=== PATIENT | female | born 2000 | race Caucasian/White ===

== ENCOUNTER → 2023-11-11 09:42 | Outpatient (REF) | payer OTHER, SELFPAY ==
[2023-11-11 10:28] LABS: % Basophils 0.5 % (0-2); % Eosinophils 1.7 % (0-6); % Immature Granulocytes 0.1 % (0-0.5); % Lymphocytes 27.2 % (20.5-51.1); % Monocytes 7.9 % (1.7-9.3); % Neutrophils 62.6 % (42.2-75.2); Absolute Eosinophils 0.1 10^3/uL (0-0.7); Absolute Monocytes 0.6 10^3/uL (0.1-0.6); Absolute Neutrophils 4.7 10^3/uL (1.4-6.5); Hematocrit 41.5 % (37.0-47.0); Hemoglobin 14.6 g/dL (12.0-16.0); Mean Corp Hgb Conc. 35.2 g/dL (33.0-37.0); Mean Corpuscular Hgb 31.3 pg (27.0-31.0); Mean Corpuscular Volume 89.1 fL (81.0-99.0); Mean Platelet Volume 10.8 fL (7.4-10.4); Nucleated Red Blood Cells % 0 %; Platelet Count 296 10^3/uL (130-400); Red Blood Cell Count 4.66 10^6/uL (4.20-5.40); White Blood Cell Count 7.5 10^3/uL (4.8-10.8)
[2023-11-11 11:05] LABS: ALT (SGPT) 14 U/L (0-35); AST (SGOT) 22 U/L (14-36); Albumin 4.1 g/dl (3.5-5.0); Alkaline Phosphatase 85 U/L (38-126); Blood Urea Nitrogen 9 mg/dl (7-17); Calcium 9.4 mg/dl (8.4-10.2); Carbon Dioxide 22 mmol/L (22-30); Chloride 105 mmol/L (98-107); Glucose 85 mg/dl (70-99); HDL Cholesterol 54 mg/dl; Iron 131 ug/dl (37-170); LDL Cholesterol, Calculated 80 mg/dl; Potassium 4.4 mmol/L (3.5-5.1); Sodium 135 mmol/L (135-145); Total Bilirubin 0.5 mg/dl (0.2-1.3); Total Cholesterol 165 mg/dl (50-199); Total Protein 6.9 g/dl (6.3-8.2); Triglyceride 156 mg/dl (10-149); Very Low Density Lipoprotein 31 mg/dl (0-30); eGFR > 60.00
[2023-11-11 11:19] LABS: Free T4 0.98 ng/dl (0.78-2.19); Percent Saturation 38 % (20-50); Total Iron Binding Capacity 338 ug/dl (265-497)
[2023-11-11 11:21] LABS: Prolactin < 1.4 ng/ml (3.0-18.6)
[2023-11-11 11:33] LABS: TSH 1.17 uIU/ml (0.47-4.68)
[2023-11-11 11:37] LABS: Ferritin 49.5 ng/ml (6.24-137)
== END ==
LOC: REG 09:42
PROVIDERS: ATTENDING PHYSICIAN Internal Medicine Endocrinology, Diabetes & Metabolism; FAMILY PHYSICIAN Family Medicine
DX: Z00.00 Encounter for general adult medical examination without abnormal findings (principal); Z13.0 Encounter for screening for diseases of the blood and blood-forming organs and certain disorders involving the immune mechanism; L65.9 Nonscarring hair loss, unspecified; Z13.1 Encounter for screening for diabetes mellitus; E78.5 Hyperlipidemia, unspecified; Z13.29 Encounter for screening for other suspected endocrine disorder; E22.1 Hyperprolactinemia; N91.4 Secondary oligomenorrhea
CPT/HCPCS: 36415; 80053; 80061; 82728; 83540; 83550; 84146; 84439; 84443; 85025

== ENCOUNTER → 2024-03-06 08:17 | Outpatient (REF) | payer OTHER, SELFPAY ==
[2024-03-06 09:28] LABS: % Basophils 0.8 % (0-2); % Immature Granulocytes 0.3 % (0-0.5); % Neutrophils 61.9 % (42.2-75.2); Absolute Basophils 0.1 10^3/uL (0-0.2); Absolute Eosinophils 0.2 10^3/uL (0-0.7); Absolute Lymphocytes 2.1 10^3/uL (1.2-3.4); Absolute Monocytes 0.6 10^3/uL (0.1-0.6); Absolute Neutrophils 4.7 10^3/uL (1.4-6.5); Mean Corp Hgb Conc. 34.1 g/dL (33.0-37.0); Mean Corpuscular Hgb 30.3 pg (27.0-31.0); Mean Corpuscular Volume 88.7 fL (81.0-99.0); Mean Platelet Volume 11.4 fL (7.4-10.4); Nucleated Red Blood Cells % 0 %; Platelet Count 310 10^3/uL (130-400); Red Blood Cell Count 4.62 10^6/uL (4.20-5.40); Red Cell Dist. Width 11.9 % (11.5-14.5); White Blood Cell Count 7.6 10^3/uL (4.8-10.8)
[2024-03-06 09:51] LABS: Iron 84 ug/dl (37-170)
[2024-03-06 10:01] LABS: Percent Saturation 23 % (20-50); Total Iron Binding Capacity 354 ug/dl (265-497)
[2024-03-06 10:23] LABS: Ferritin 50.7 ng/ml (6.24-137)
== END ==
LOC: REG 08:17
PROVIDERS: ATTENDING PHYSICIAN Family Medicine
DX: L65.9 Nonscarring hair loss, unspecified (principal)
CPT/HCPCS: 36415; 82728; 83540; 83550; 85025

== ENCOUNTER 2024-05-25 14:51 | Outpatient (RCR) | payer OTHER, SELFPAY | END 2024-05-25 23:59 | disposition home or self-care (01) | LOC: RPT 14:51 | PROVIDERS: ATTENDING PHYSICIAN Family Medicine | DX: M62.838 Other muscle spasm (principal); Z73.6 Limitation of activities due to disability | CPT/HCPCS: 97010; 97110; 97112; 97140; 97161 ==

== ENCOUNTER → 2024-11-11 09:14 | Outpatient (REF) | payer OTHER, SELFPAY ==
[2024-11-11 10:17] LABS: % Basophils 0.6 % (0-2); % Eosinophils 1.1 % (0-6); % Immature Granulocytes 0.3 % (0-0.5); % Lymphocytes 22.4 % (20.5-51.1); % Monocytes 8.8 % (1.7-9.3); % Neutrophils 66.8 % (42.2-75.2); Absolute Basophils 0.1 10^3/uL (0-0.2); Absolute Eosinophils 0.1 10^3/uL (0-0.7); Absolute Lymphocytes 2.1 10^3/uL (1.2-3.4); Absolute Monocytes 0.8 10^3/uL (0.1-0.6); Absolute Neutrophils 6.3 10^3/uL (1.4-6.5); Hematocrit 41.5 % (37.0-47.0); Hemoglobin 14.5 g/dL (12.0-16.0); Mean Corp Hgb Conc. 34.9 g/dL (33.0-37.0); Mean Corpuscular Hgb 30.6 pg (27.0-31.0); Mean Corpuscular Volume 87.6 fL (81.0-99.0); Mean Platelet Volume 11.2 fL (7.4-10.4); Nucleated Red Blood Cells % 0 %; Platelet Count 301 10^3/uL (130-400); Red Blood Cell Count 4.74 10^6/uL (4.20-5.40); Red Cell Dist. Width 12.2 % (11.5-14.5); White Blood Cell Count 9.4 10^3/uL (4.8-10.8)
[2024-11-11 10:56] LABS: ALT (SGPT) 12 U/L (0-35); AST (SGOT) 17 U/L (14-36); Albumin 4.3 g/dl (3.5-5.0); Alkaline Phosphatase 83 U/L (38-126); Blood Urea Nitrogen 9 mg/dl (7-17); Calcium 9.3 mg/dl (8.4-10.2); Carbon Dioxide 20 mmol/L (22-30); Chloride 107 mmol/L (98-107); Glucose 85 mg/dl (70-99); HDL Cholesterol 57 mg/dl; LDL Cholesterol, Calculated 90 mg/dl; Potassium 4.6 mmol/L (3.5-5.1); Sodium 136 mmol/L (135-145); Total Bilirubin 0.5 mg/dl (0.2-1.3); Total Cholesterol 178 mg/dl (50-199); Total Protein 7.1 g/dl (6.3-8.2); Triglyceride 156 mg/dl (10-149); Very Low Density Lipoprotein 31 mg/dl (0-30); eGFR > 60.00
[2024-11-11 11:05] LABS: Total Thyroxine 9.94 ug/dl (5.5-11.0)
[2024-11-11 11:07] LABS: Prolactin 53.9 ng/ml (3.0-18.6)
[2024-11-11 13:10] LABS: Glycohemoglobin (HgbA1c) 5.2 % (4.0-5.6)
[2024-11-11 14:44] LABS: IgA 275 mg/dl (70-400)
[2024-11-14 02:07] LABS: Endomysial IgA Antibody Titer <1:10 (<1:10)
== END ==
LOC: REG 09:14
PROVIDERS: ATTENDING PHYSICIAN Internal Medicine Endocrinology, Diabetes & Metabolism; FAMILY PHYSICIAN Family Medicine
DX: K52.9 Noninfective gastroenteritis and colitis, unspecified (principal); Z13.0 Encounter for screening for diseases of the blood and blood-forming organs and certain disorders involving the immune mechanism; E78.5 Hyperlipidemia, unspecified; Z13.1 Encounter for screening for diabetes mellitus; E23.6 Other disorders of pituitary gland; E22.1 Hyperprolactinemia
CPT/HCPCS: 36415; 80053; 80061; 82784; 83036; 83516; 84146; 84436; 84443; 85025; 86231

== ENCOUNTER → 2024-12-15 08:21 | Outpatient (REF) | payer OTHER, SELFPAY ==
[2024-12-15 10:07] LABS: Cortisol, Random 12.3 ug/dl
[2024-12-15 10:39] LABS: ALT (SGPT) 12 U/L (0-35); AST (SGOT) 19 U/L (14-36); Albumin 4.4 g/dl (3.5-5.0); Alkaline Phosphatase 71 U/L (38-126); Blood Urea Nitrogen 8 mg/dl (7-17); Calcium 9.4 mg/dl (8.4-10.2); Carbon Dioxide 23 mmol/L (22-30); Chloride 108 mmol/L (98-107); Glucose 91 mg/dl (70-99); Potassium 4.5 mmol/L (3.5-5.1); Sodium 137 mmol/L (135-145); Total Protein 7.3 g/dl (6.3-8.2); eGFR > 60.00
[2024-12-17 04:16] LABS: IGF-1 Z Score Calculation -2.8
== END ==
LOC: REG 08:21
PROVIDERS: ATTENDING PHYSICIAN Internal Medicine Endocrinology, Diabetes & Metabolism; FAMILY PHYSICIAN Family Medicine
DX: D35.2 Benign neoplasm of pituitary gland (principal)
CPT/HCPCS: 36415; 80053; 82024; 82533; 84146; 84305

== ENCOUNTER → 2024-12-17 08:51 | Outpatient (REF) | payer OTHER, SELFPAY | LOC: REG 08:51 | PROVIDERS: ATTENDING PHYSICIAN Internal Medicine Endocrinology, Diabetes & Metabolism; FAMILY PHYSICIAN Family Medicine | DX: D35.2 Benign neoplasm of pituitary gland (principal) | CPT/HCPCS: 81050; 82530 ==

== ENCOUNTER → 2025-02-24 12:02 | Outpatient (REF) | payer OTHER, SELFPAY | LOC: REG 12:02 | PROVIDERS: ATTENDING PHYSICIAN Family Medicine | DX: M79.672 Pain in left foot (principal); M25.572 Pain in left ankle and joints of left foot | CPT/HCPCS: 73610; 73630 ==

== ENCOUNTER 2025-03-15 15:53 | Emergency (ER) | payer OTHER, SELFPAY ==
[2025-03-15 15:58] VITALS: BP 153/80
[2025-03-15 16:25] LABS: Hematocrit 43.6 % (37.0-47.0); Hemoglobin 14.5 g/dL (12.0-16.0); Mean Corp Hgb Conc. 33.3 g/dL (33.0-37.0); Mean Corpuscular Volume 91.4 fL (81.0-99.0); Nucleated Red Blood Cells % 0 %; Platelet Count 314 10^3/uL (130-400); Red Cell Dist. Width 11.9 % (11.5-14.5)
[2025-03-15 16:39] LABS: HCG, Serum Qualitative Screen Negative
[2025-03-15 16:49] LABS: Troponin I < 0.012 ng/ml
[2025-03-15 16:50] LABS: ALT (SGPT) 15 U/L (0-35); AST (SGOT) 19 U/L (14-36); Albumin 4.4 g/dl (3.5-5.0); Alkaline Phosphatase 82 U/L (38-126); Blood Urea Nitrogen 11 mg/dl (7-17); Calcium 9.0 mg/dl (8.4-10.2); Carbon Dioxide 25 mmol/L (22-30); Chloride 107 mmol/L (98-107); Glucose 103 mg/dl (70-99); Potassium 4.1 mmol/L (3.5-5.1); Sodium 139 mmol/L (135-145); Total Protein 7.3 g/dl (6.3-8.2); eGFR > 60.00
[2025-03-15 18:58] VITALS: BP 132/73
[2025-03-15 19:02] VITALS: BMI 44.4
--- NOTE | 2025-03-15 19:35 | ED.GENMED ---
History of Present Illness
General
Chief Complaint: Cardiac Symptoms
Source: patient and family (Mother)
Exam Limitations: none
Time Seen by Provider: 03/15/25 19:26
History of Present Illness
History of Present Illness:
24-year-old female complaining of episodes of heart racing some vague nonexertional intermittent chest pain tingling of her fingers. Is been going on for a week. Today she wore her Apple Watch but had a heart rate up to 150. She went to the nurse
who checked her blood pressure which was slightly elevated. They did not check her pulse however. She denies syncope. Currently feels okay.
Past History
Past History
ED Past Medical History: Psychiatric and Other (Irritable bowel syndrome)
ED Past Surgical History: None
Social History
Tobacco: Non-smoker
Alcohol: None
Drug: None
Review of Systems
Review of Systems
All Other Systems: Not applicable
Constitutional: Denies fever or chills
Respiratory: Denies cough
Cardiac: Denies syncope
ABD/GI: Reports no symptoms
Phy Exam
Physical Exam
Physical Exam:
GENERAL: Alert and oriented in no apparent distress
EYE: Orbits normal.
NECK: Supple, no thyroid palpable no significant adenopathy.
ENT: Pharynx without erythema
CARDIAC: Regular rate and rhythm without any obvious murmurs.
LUNGS: Clear breath sounds,normal
ABDOMEN: Soft, without focal tenderness or distention
NEUROLOGICAL: Alert and oriented , grossly non-focal
SKIN: Warm and dry, no rash or lesion, no discoloration, skin intact.
MUSCULOSKELETAL: No edema,no deformity.Good color
PSYCH: Normal and appropriate interaction.
Course
Orders/Labs/Results
Orders:
Orders
03/15/25 15:59
Electrocardiogram (*1) Urgent
Reason for Study: Chest Pain
03/15/25 16:00
EKG- Treatment ONCE
Test Result ONCE
03/15/25 16:18
Complete Blood Count/With Diff Urgent
Comprehensive Metabolic Panel Urgent
HCG, Serum Qualitative Screen Urgent
TSH Reflex To Free T4 Urgent
Comment: ADD ON
Troponin I Urgent
03/15/25 19:34
Add On- LAB Urgent
Tests Added?: tsh reflex t4
CXR2 [CR Chest - 2 Views ] Urgent
Comment:
Reason For Exam: Heart palpitations/short of breath
03/15/25 20:12
D-Dimer Urgent
Abnormal Lab Results
03/15/25
16:18
MPV 10.6 H fL
(7.4-10.4)
Absolute Monos (auto) 0.9 H 10^3/uL
(0.1-0.6)
Glucose 103 H mg/dl
(70-99)
03/15/25 16:18
03/15/25 16:18
Vital Signs
Initial and Last Documented VS:
Initial Vital Signs
Temp Pulse Resp BP Pulse Ox
98 F 111 16 153/80 97
03/15/25 15:58 03/15/25 15:58 03/15/25 15:58 03/15/25 15:58 03/15/25 15:58
Last Documented Vital Signs
Temp Pulse Resp BP Pulse Ox
98 F 80 17 109/61 97
03/15/25 15:58 03/15/25 21:00 03/15/25 20:52 03/15/25 21:00 03/15/25 19:36
MDM/Problems Addressed
Differential Diagnosis Includes:
Patient's exam is unremarkable. Cardiac testing labs blood sugar electrolytes test EKG all within normal limits. No arrhythmias on the monitor. It is possible patient went into a rapid rhythm at work. However nothing to support that at
this time. Highly doubt pulmonary emboli. But will check D-dimer. Also consider thyroid which will be checked. Cardiac testing is stable.
*Radiology
Radiology exam reviewed: radiology read reviewed (Negative chest x-ray)
*Pulse Oximetry
SaO2: 97
Oxygen Mode of Delivery: Room air
Patient hypoxic: no
*EKG
Interpreted by ED Provider?: Yes
Interpretation: abnormal
Comparison EKG: no comparison EKG present
Heart Rate: 102
Rate: tachycardiac
Rhythm: sinus
Haugan: normal axis
Interval: normal interval
QRS Pattern: normal QRS
Ischemia: no ischemia
*Technical Sme Interpretation
Rate: normal
Interpretation: normal
Heart Rate: 95
Rhythm: sinus
*Critical Care Note
Total Time (30-74mins, 75-104mins- exclusive of procedures): Not Applicable
Data Reviewed
Review of Other/Old Records Reveals: Labs, Records and Testing
Update Note
Update Note:
D-dimer negative. Chest x-ray negative. Cardiac testing negative. Aware of elevated right hemidiaphragm. Stable for discharge to follow-up
ED Attending Note
-
Portions of this chart may have been created with voice recognition software.� Occasional wrong word or��sound alike� substitutions may have occurred due to the inherent limitations of voice recognition software.
Discharge Plan
Departure
Patient Disposition: Home (Routine Discharge)
Date of Disposition: 03/15/25
Time of Disposition: 21:33
Patient with high blood pressure during this ER visit?: No
Discharge Problem:
Palpitations/dyspnea
Instructions: Chest Pain (DC), Shortness of breath in adults - ED (DC), Palpitations - ED (DC), BLOOD PRESSURE
Prescriptions:
No Action
desog-e.estradiol/e.estradiol [Kariva (28)] 1 EACH tablet
1 ea PO DAILY
hydrocodone-acetaminophen 1 TABLET tablet
1 - 2 tab PO Q4HPRN PRN (Reason: pain) Qty: 15 0RF
azithromycin [Zithromax] 500 MG tablet
500 mg PO DAILY 2 Days Qty: 2 0RF
Referrals:
Bree Leach MD [Family Provider, Family Practice] - Follow up in 2-3 days
Interventions
Interventions:
*Risk Screen - Suicide Last Done: 03/15/25 19:01
*General Assessment Last Done: 03/15/25 19:01
*Neglect/Abuse Screening Last Done: 03/15/25 19:01
*ED COVID-19 Vaccine History Last Done: 03/15/25 19:01
*ED Influenza Vaccine History Last Done: 03/15/25 19:01
ED- Pulmonary Assessment Last Done: 03/15/25 19:01
ED- Cardiac Assessment Last Done: 03/15/25 19:01
Discharge Date and Time
Print Language: GREEK
[2025-03-15 20:30] LABS: D-Dimer 0.37 ug/mlFEU (0.00-0.50)
[2025-03-15 20:51] VITALS: BP 110/62
[2025-03-15 21:00] VITALS: BP 109/61
== END 2025-03-15 22:31 | disposition home or self-care (01) ==
LOC: EMR 15:53
PROVIDERS: Student in an Organized Health Care Education/Training Program; EMERGENCY PHYSICIAN Emergency Medicine; FAMILY PHYSICIAN Family Medicine
DX: R00.2 Palpitations (principal); R06.00 Dyspnea, unspecified; R20.2 Paresthesia of skin
CPT/HCPCS: 99285; 71046; 80053; 84443; 84484; 84703; 85025; 85379; 93005

== ENCOUNTER → 2025-03-16 15:29 | Outpatient (REF) | payer OTHER, SELFPAY | LOC: RCS 15:29 | PROVIDERS: ATTENDING PHYSICIAN Student in an Organized Health Care Education/Training Program | DX: R00.2 Palpitations (principal); R07.89 Other chest pain | CPT/HCPCS: 93225; 93226 ==

== ENCOUNTER → 2025-05-05 16:46 | Outpatient (REF) | payer OTHER, SELFPAY | LOC: RCS 16:46 | PROVIDERS: ATTENDING PHYSICIAN Family Medicine | DX: R00.0 Tachycardia, unspecified (principal) | CPT/HCPCS: 93306 ==